=== PATIENT | male | born 1960 | race Caucasian/White ===

== ENCOUNTER 2018-06-04 06:01 | Day surgery (SDC) | payer MEDICAID ==
[2018-06-04] VITALS (13 sets, daily range): BP systolic 103–146; BP diastolic 66–86
[~2018-06-04] VITALS: Ht 172.7 cm; Wt 85.7 kg
[2018-06-04] MEDS ORDERED: normal saline 1,000 ML IV SCH (06:35)
[2018-06-04] MEDS ORDERED: diphenhydrAMINE 25mg capsule PO PRN (06:35)
[2018-06-04] MEDS ORDERED: nitroGLYCERIN 0.4mg SUBLingual tab SL PRN (06:35)
[2018-06-04] MEDS ORDERED: LORazepam 0.5 MG tablet PO PRN (06:35)
[2018-06-04] MEDS ORDERED: FOLI1TAB16 PO (06:55)
[2018-06-04] MEDS ORDERED: LEVO100T PO (06:55)
[2018-06-04] MEDS ORDERED: HYDR25TA4 PO (06:55)
[2018-06-04] MEDS ORDERED: METO50TA7 PO (06:55)
[2018-06-04] MEDS ORDERED: NITR0.4T48 SL (06:55)
[2018-06-04] MEDS ORDERED: ASPI-611 PO (06:55)
[2018-06-04] MEDS ORDERED: OMEP20TA23 PO (06:55)
[2018-06-04] MEDS ORDERED: midazolam 2 mg/2 ml injection ONE (08:53)
[2018-06-04] MEDS ORDERED: fentaNYL/PF 50MCG/1 ML 2ML syringe ONE (08:53)
[2018-06-04] MEDS ORDERED: iohexol 350MG/ML 100ml bottle IV ONE (08:54)
[2018-06-04] MEDS ORDERED: LIDOcaine 1% (10mg/ml)w/preservative injection 20ml MDV ONE (08:54)
[2018-06-04] MEDS ORDERED: iohexol 350 MG/ML 50ML vial IV ONE ×2 (08:54→09:44)
[2018-06-04] MEDS ORDERED: HYDROcodone/acetaminophen 5mg/325mg tablet PO PRN (10:50)
[2018-06-04] MEDS ORDERED: ondansetron/PF 4mg/2ml inj IV PRN (10:50)
[2018-06-04] MEDS ORDERED: HYDROcodone/acetaminophen 10/325mg tab PO PRN (10:55)
[2018-06-04] MEDS ORDERED: proCHLORperazine 10 MG/2 ml inj IV PRN (10:55)
[2018-06-04] MEDS ORDERED: OXAZEpam 15mg capsule PO PRN (10:55)
== END 2018-06-04 16:00 | disposition home or self-care (01) ==
LOC: SSTAY O 06:01
PROVIDERS: ATTEND Internal Medicine Cardiovascular Disease
DX: I25.119 Atherosclerotic heart disease of native coronary artery with unspecified angina pectoris (principal); K21.9 Gastro-esophageal reflux disease without esophagitis; I10 Essential (primary) hypertension; J44.9 Chronic obstructive pulmonary disease, unspecified; E78.5 Hyperlipidemia, unspecified; Z87.891 Personal history of nicotine dependence
CPT/HCPCS: 93005; 93458; 93567; 99152; 99153; A6257; J1644; J2001; J2250; J3010; J7030; Q0163; Q9967; 93459; A4620; C1760; C1769

== ENCOUNTER 2018-09-15 11:50 | Emergency (ER) | payer MEDICAID ==
[~2018-09-15] VITALS: Ht 172.7 cm; Wt 84.1 kg
[~2018-09-15 11:50] MED LIST: ASPI-611 PO; FOLI1TAB16 PO; HYDR25TA4 PO; LEVO100T PO; METO50TA7 PO; NITR0.4T48 SL; OMEP20TA23 PO
[2018-09-15 11:55] VITALS: BP 133/84
[2018-09-15] MEDS ORDERED: LIDOcaine 1% w/epiNEPHrine 1:200,000 30ml vial IM ONE (12:05)
[2018-09-15] MEDS ORDERED: TETanus/Pertussis (Acell)/Diphther VAC/PF (Tdap-Adult) 0.5ml syringe IM ONE (12:05)
== END 2018-09-15 12:49 | disposition home or self-care (01) ==
LOC: ER 11:50
DX: S61.412A Laceration without foreign body of left hand, initial encounter (principal); Z88.1 Allergy status to other antibiotic agents; Z79.82 Long term (current) use of aspirin; Z79.899 Other long term (current) drug therapy; W27.8XXA Contact with other nonpowered hand tool, initial encounter; Y93.89 Activity, other specified; Y92.89 Other specified places as the place of occurrence of the external cause; Y99.8 Other external cause status
CPT/HCPCS: 29125; 99283

== ENCOUNTER 2019-10-17 04:38 | Emergency (ER) | payer MEDICAID ==
[~2019-10-17] VITALS: Ht 172.7 cm; Wt 85.0 kg
[2019-10-17 04:43] VITALS: BP 155/84
[2019-10-17] MEDS ORDERED: HYDR25SU32 RC (05:52)
[2019-10-17] MEDS ORDERED: ANBESOL TP (05:52)
[2019-10-17] MEDS ORDERED: PROCHC RC (05:53)
== END 2019-10-17 06:13 | disposition home or self-care (01) ==
LOC: ER 04:39
DX: K64.9 Unspecified hemorrhoids (principal); K62.89 Other specified diseases of anus and rectum; Z88.1 Allergy status to other antibiotic agents; Z88.8 Allergy status to other drugs, medicaments and biological substances; Z79.82 Long term (current) use of aspirin; Z79.899 Other long term (current) drug therapy
CPT/HCPCS: 99283